=== PATIENT | male | born 1995 | race Caucasian/White ===

== ENCOUNTER 2016-09-11 22:40 | Emergency (ER) | payer OTHER ==
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
[2016-09-11] MEDS ORDERED: Ibuprofen 800 MG Tab PO ONE (23:33)
[2016-09-12 01:00] VITALS: BP 132/84
--- NOTE | 2016-09-12 17:45 | CT ---
CT cervical spine Technique: Multiple axial sections were obtained from above C1 inferiorly to the top of T1. Reconstructed sagittal and coronal images were reviewed. Findings: Mastoid sinuses and middle ear cavities are clear. Posterior skull base is intact. Vertebral bodies and posterior arches are intact. No fracture is seen. No bony central or bony neural foraminal stenosis is seen. No abnormal subluxation is seen on the reconstructed sagittal images. Impression: 1. No abnormality identified on CT study of the cervical spine. Nothing acute is identified. Agree with preliminary report issued by [facility] (preliminary report dictated on 09/12/16, 12:28 AM Central Time) Diagnostic code #1
--- NOTE | 2016-09-12 17:45 | CR ---
Chest: Two views of the chest were obtained. Comparison: No previous study. Heart size and mediastinum are normal. Lungs are clear. Bony structures are unremarkable for the patient's age. Impression: 1. Nothing acute is identified on two-view chest x-ray. Diagnostic code #1
== END 2016-09-12 00:40 | disposition home or self-care (01) ==
LOC: EDBD → JD.ED 22:40
DX: S20.211A Contusion of right front wall of thorax, initial encounter (principal); S40.021A Contusion of right upper arm, initial encounter; S13.9XXA Sprain of joints and ligaments of unspecified parts of neck, initial encounter; S61.411A Laceration without foreign body of right hand, initial encounter; V89.0XXA Person injured in unspecified motor-vehicle accident, nontraffic, initial encounter
CPT/HCPCS: 71020; 72125; 99284; A9270; 12002; 99283-25

== ENCOUNTER 2016-10-31 21:24 | Emergency (ER) | payer OTHER ==
[2016-10-31 21:37] VITALS: BP 147/78
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
== END 2016-11-01 00:10 ==
LOC: EDBD → JD.ED 21:24
DX: R45.851 Suicidal ideations (principal); S51.812A Laceration without foreign body of left forearm, initial encounter; F12.10 Cannabis abuse, uncomplicated; F11.10 Opioid abuse, uncomplicated; F13.10 Sedative, hypnotic or anxiolytic abuse, uncomplicated; Z98.890 Other specified postprocedural states
CPT/HCPCS: 36415; 80053; 80306; 84443; 85025; 99285; G0480; 99284

== ENCOUNTER 2017-02-27 14:48 | Emergency (ER) | payer OTHER ==
[2017-02-27 14:57] VITALS: BP 140/91
--- NOTE | 2017-02-27 15:31 | EDM.PDOC ---
ED HPI GENERAL MEDICAL PROBLEM - General Chief Complaint: Respiratory Problem Stated Complaint: SORE THROAT AND CHEST HURTS Time Seen by Provider: 02/27/17 14:58 Source of Information: Reports: Patient, RN Notes Reviewed - History of Present Illness INITIAL COMMENTS - FREE TEXT/NARRATIVE: 21-year-old male comes in with cough and sore throat. This all started about 5- 7 days ago. The cough has become more productive over the past 3-4 days. He has sharp discomfort over the anterior chest with coughing. Often productive of yellowish-green phlegm. Some chills, no definite fever. There has been some throat discomfort, not severe. Chest Pain Score (Numeric/FACES): 8 - Related Data Allergies Allergy/AdvReac Type Severity Reaction Status Date / Time No Known Allergies Allergy Verified 02/27/17 14:59 Home Meds: Home Meds Sertraline [Zoloft] 50 mg PO DAILY 02/27/17 [History] traZODone 100 mg PO BEDTIME 02/27/17 [History] Past Medical History Respiratory History: Reports: Other (See Below) Other Respiratory History: freq colds Musculoskeletal History: Reports: Other (See Below) Other Musculoskeletal History: left ankle surgery Social & Family History - Tobacco Use Smoking Status *Q: Current Some Day Smoker Years of Tobacco use: 1 Packs/Tins Daily: 0.1 - Caffeine Use Caffeine Use: Reports: Coffee, Soda - Recreational Drug Use Recreational Drug Use: No Recreational Drug Type: Reports: Marijuana/Hashish ED ROS GENERAL - Review of Systems Review Of Systems: See Below Constitutional: Denies: Fever, Chills HEENT: Reports: Sinus Problem (there is been some mild nasal and sinus congestion and drainage), Throat Pain Respiratory: Reports: Pleuritic Chest Pain, Cough (occasional), Sputum. Denies : Shortness of Breath Cardiovascular: Reports: Chest Pain (yellowish-greenwith coughing) GI/Abdominal: Denies: Abdominal Pain, Nausea, Vomiting Skin: Reports: No Symptoms Neurological: Reports: No Symptoms ED EXAM, GENERAL - Physical Exam Exam: See Below General Appearance: Alert, No Apparent Distress Eye Exam: Bilateral Eye: PERRL Throat/Mouth: Normal Inspection. No: Inflammation Head: No: Facial Swelling Neck: Supple, Full Range of Motion. No: Lymphadenopathy (L), Lymphadenopathy (R ) Respiratory/Chest: No Respiratory Distress, Lungs Clear, Normal Breath Sounds, No Accessory Muscle Use. No: Rhonchi, Wheezing Cardiovascular: Regular Rate, Rhythm Neurological: Alert, No Motor/Sensory Deficits Skin Exam: Warm, Dry, Normal Color Course - Vital Signs Last Recorded V/S: Last Vital Signs Temp 97.2 F 02/27/17 14:55 Pulse 72 02/27/17 14:55 Resp 20 02/27/17 14:55 BP 140/91 H 02/27/17 14:55 Pulse Ox 98 02/27/17 14:55 Departure - Departure Time of Disposition: 15:29 Disposition: Home, Self-Care 01 Condition: Fair Clinical Impression: Bronchitis Upper respiratory infection Qualifiers: URI type: unspecified URI Qualified Code(s): J06.9 - Acute upper respiratory infection, unspecified - Discharge Information Instructions: Upper Respiratory Infection, Adult, [id number], Acute Bronchitis Referrals: Shay Delcid MD [Primary Care Provider] - Forms: ED Department Discharge Additional Instructions: Z-Pipo as prescribed, and plain water to maintain hydration, vaporizer steam as needed, and as needed, alternate Tylenol and ibuprofen as needed. Symptoms will gradually improve over the next 3-5 days. Follow-up clinic as needed.
== END 2017-02-27 15:45 | disposition home or self-care (01) ==
LOC: EDSEX → JD.ED 14:48 → MERGE 14:48 → JD.ED 15:45
DX: J40 Bronchitis, not specified as acute or chronic (principal); J06.9 Acute upper respiratory infection, unspecified; F17.210 Nicotine dependence, cigarettes, uncomplicated; Z79.899 Other long term (current) drug therapy
CPT/HCPCS: 99283